=== PATIENT | female | born 1950 | race Caucasian/White ===

== ENCOUNTER 2017-08-23 05:47 | Inpatient (IN) | payer MEDICAID ==
[2017-08-23 06:06] LABS: ADD MAN DIFF? NO
[2017-08-23] MEDS: HEPARIN 1000 UNITS/ML 10 ML INJ IV (06:07)
[2017-08-23] MEDS: ASPIRIN 325 MG TAB PO (06:08)
[2017-08-23] MEDS: NITROGLYCERIN 50 MG/D5W (PMX) 250 ML IV (06:18)
[2017-08-23 06:20] LABS: WHITE BLOOD COUNT 8.2 10^3/ul (4.8-10.8)
[2017-08-23 06:20] LABS: BASOPHILS % 0.5 % (0.0-2.0); EOSINOPHILS # 0.1 10^3/ul (0.0-0.5); EOSINOPHILS % 1.1 % (0.0-7.0); HEMATOCRIT 44.3 % (37.0-47.0); HEMOGLOBIN 14.9 g/dl (12.0-16.0); LYMPHOCYTES % 24.2 % (15.0-51.0); MEAN CORPUSCULAR HEMOGLOBIN 28.3 pg (29.0-33.0); MEAN CORPUSCULAR HGB CONC 33.6 g/dl (32.0-37.0); MEAN CORPUSCULAR VOLUME 84.2 fl (82.0-101.0); MEAN PLATELET VOLUME 11.8 fl (7.4-10.4); MONOCYTE # 0.4 10^3/ul (0.3-0.9); MONOCYTES % 4.7 % (0.0-11.0); NEUTROPHIL # 5.7 10^3/ul (1.6-7.5); NEUTROPHILS % 68.9 % (39.0-77.0); PLATELET COUNT 276 10^3/UL (140-415); RED BLOOD COUNT 5.26 10^6/ul (4.20-5.40); RED CELL DISTRIBUTION WIDTH 12.9 % (11.5-14.5)
[2017-08-23 06:25] LABS: INR 0.84; PROTIME 11.6 Sec (11.9-14.9); PT RATIO 0.9
[2017-08-23 06:27] LABS: ANION GAP 18 (8-16); BLOOD UREA NITROGEN 16 mg/dl (7-20); CALCIUM 9.9 mg/dl (8.4-10.2); CARBON DIOXIDE 24 mmol/L (21-31); CHLORIDE 100 mmol/L (97-110); CREATININE 0.75 mg/dl (0.44-1.00); POTASSIUM 4.5 mmol/L (3.5-5.1); SODIUM 137 mmol/L (135-144)
[2017-08-23] MEDS ORDERED: LIDOCAINE 1% (MDV) 20 ML INJ (06:31)
[2017-08-23] MEDS ORDERED: IODIXANOL LOCM 100 ML BTL (06:31)
[2017-08-23] MEDS ORDERED: MIDAZOLAM 1 MG/ML 2 ML INJ (06:31)
[2017-08-23] MEDS ORDERED: HEPARIN 1000 UNITS/ML 10 ML INJ (06:31)
[2017-08-23] MEDS ORDERED: IOHEXOL 350MG/ML 50 ML BTL (06:31)
[2017-08-23] MEDS ORDERED: FENTAnyl 50 MCG/ML VIAL (06:31)
[2017-08-23] MEDS ORDERED: NITROGLYCERIN (IC) 100 MCG/ML INJ (06:32)
[2017-08-23] MEDS ORDERED: VERAPAMIL 5 MG INJ (06:32)
[2017-08-23 06:39] LABS: PARTIAL THROMBOPLASTIN TIME 25.5 Sec (25.0-35.0)
[2017-08-23 06:40] LABS: GLUCOSE 465 mg/dl (70-220)
[2017-08-23 06:44] LABS: TROPONIN-I 0.271 ng/ml (0.00-0.12)
[2017-08-23] MEDS ORDERED: NITROGLYCERIN 50 MG/D5W 250 ML BTL (07:00)
[2017-08-23] MEDS ORDERED: ASPIRIN 81 MG TAB (07:00)
[2017-08-23] MEDS ORDERED: SOD CHLORIDE 0.9% 1,000 ML IV (07:10)
[2017-08-23] MEDS ORDERED: ONDANSETRON 4 MG INJ IV (07:30)
[2017-08-23 07:45] LABS: CHOL/HDL RATIO 6.6 RATIO; HDL CHOLESTEROL 47 mg/dl (35-98); LDL CHOLESTEROL,CALCULATED 226 mg/dl; TRIGLYCERIDES 194 mg/dl (0-149)
[2017-08-23 07:45] LABS: CHOLESTEROL 312 mg/dl (100-200)
[2017-08-23 07:57] LABS: HEMOGLOBIN A1C 12.6 % (0-5.9)
[2017-08-23] MEDS: SOD CHLORIDE 0.9% 1,000 ML IV (08:09)
[2017-08-23] MEDS: ACCU-CHEK XX ×15 (09:00→23:04)
[2017-08-23] MEDS ORDERED: DEXTROSE 50% 50 ML SYRINGE IV ×2 (09:00)
[2017-08-23] MEDS ORDERED: ATORVASTATIN 40 MG TAB PO (09:00)
[2017-08-23] MEDS ORDERED: ACETAMINOPHEN 325 MG TAB (09:46)
[2017-08-23] MEDS: ACETAMINOPHEN 650MG/20.3ML CUP PO (09:47)
[2017-08-23] MEDS: METOPROLOL (XL) 25 MG TAB PO ×2 (10:31→20:03)
[2017-08-23] MEDS: ATORVASTATIN 80 MG TAB PO (10:31)
[2017-08-23] MEDS: ACETYLCYSTEINE 600 MG CAP PO ×2 (10:31→20:04)
[2017-08-23] MEDS: INSULIN HUMAN REGULAR 100 UNIT in SOD CHLORIDE 0.9% 99 ML IV (10:34)
[2017-08-23 14:54] LABS: CREATINE KINASE 395 IU/L (23-200)
[2017-08-23 15:05] LABS: CK INDEX 3.7
[2017-08-23] MEDS: morphine 2 MG INJ IV (15:42)
[2017-08-23] MEDS ORDERED: LABETALOL HCL 20MG INJ IV (19:30)
[2017-08-23 20:05] LABS: CREATINE KINASE 574 IU/L (23-200)
[2017-08-23] MEDS: HEPARIN 25000 UNITS/250 ML 250 ML IV (20:26)
[2017-08-23] MEDS ORDERED: ENOXAPARIN 100 MG/ML SYG SC (21:00)
[2017-08-23] MEDS: CEFAZOLIN 2 GM/50 ML (PMX) 50 ML IVPB (21:32)
[2017-08-23] MEDS: 1/2 NS + KCL 20 MEQ 1,000 ML IV (21:32)
[2017-08-23 21:38] LABS: ADD UMIC YES; UR ASCORBIC ACID NEGATIVE (NEGATIVE); UR BILIRUBIN (Dip) NEGATIVE (NEGATIVE); UR BLOOD (Dip) 2+ mg/dL (NEGATIVE); UR CLARITY CLEAR (CLEAR); UR COLOR YELLOW (YELLOW); UR GLUCOSE (Dip) 1+ mg/dL (NEGATIVE); UR KETONES (Dip) TRACE mg/dL (NEGATIVE); UR LEUKOCYTE ESTERASE (Dip) NEGATIVE Leu/ul (NEGATIVE); UR MUCUS FEW /HPF (NONE SEEN); UR NITRITE (Dip) NEGATIVE (NEGATIVE); UR RBC 25 /HPF (0-5); UR SPECIFIC GRAVITY (Dip) 1.025 (1.003-1.030); UR TOTAL PROTEIN (Dip) NEGATIVE (NEGATIVE); UR UROBILINOGEN (Dip) NEGATIVE (NEGATIVE); UR WBC 3 /HPF (0-5)
[2017-08-23] MEDS: LABETALOL HCL 20MG INJ IV (23:08)
[2017-08-24] MEDS: ACCU-CHEK XX ×18 (00:18→23:16)
[2017-08-24 01:49] LABS: PARTIAL THROMBOPLASTIN TIME 41.5 Sec (25.0-35.0)
[2017-08-24] MEDS: HEPARIN 1000 UNITS/ML 10 ML INJ IV (02:04)
[2017-08-24] MEDS: ACETAMINOPHEN 650MG/20.3ML CUP PO (03:37)
[2017-08-24] MEDS: PANTOPRAZOLE 40 MG INJ IV (05:08)
[2017-08-24 05:46] LABS: ADD MAN DIFF? NO
[2017-08-24 05:50] LABS: WHITE BLOOD COUNT 11.9 10^3/ul (4.8-10.8)
[2017-08-24 05:50] LABS: BASOPHILS % 0.2 % (0.0-2.0); EOSINOPHILS % 0.1 % (0.0-7.0); HEMATOCRIT 36.2 % (37.0-47.0); HEMOGLOBIN 12.5 g/dl (12.0-16.0); LYMPHOCYTES # 1.6 10^3/ul (0.8-2.9); LYMPHOCYTES % 13.8 % (15.0-51.0); MEAN CORPUSCULAR HEMOGLOBIN 28.5 pg (29.0-33.0); MEAN CORPUSCULAR HGB CONC 34.5 g/dl (32.0-37.0); MEAN CORPUSCULAR VOLUME 82.6 fl (82.0-101.0); MEAN PLATELET VOLUME 11.1 fl (7.4-10.4); MONOCYTE # 0.9 10^3/ul (0.3-0.9); MONOCYTES % 7.7 % (0.0-11.0); NEUTROPHIL # 9.3 10^3/ul (1.6-7.5); NEUTROPHILS % 77.8 % (39.0-77.0); PLATELET COUNT 231 10^3/UL (140-415); RED BLOOD COUNT 4.38 10^6/ul (4.20-5.40); RED CELL DISTRIBUTION WIDTH 12.9 % (11.5-14.5)
[2017-08-24 06:17] LABS: ALANINE AMINOTRANSFERASE 32 IU/L (13-69); ALBUMIN 3.5 g/dl (3.3-4.9); ALBUMIN/GLOBULIN RATIO 1.06; ALKALINE PHOSPHATASE 99 IU/L (42-121); ANION GAP 12 (8-16); ASPARTATE AMINO TRANSFERASE 129 IU/L (15-46); BILIRUBIN,INDIRECT 0.3 mg/dl (0-1.1); BILIRUBIN,TOTAL 0.3 mg/dl (0.2-1.3); BLOOD UREA NITROGEN 7 mg/dl (7-20); CALCIUM 8.6 mg/dl (8.4-10.2); CARBON DIOXIDE 20 mmol/L (21-31); CHLORIDE 106 mmol/L (97-110); CREATININE 0.57 mg/dl (0.44-1.00); GLUCOSE 122 mg/dl (70-220); POTASSIUM 3.2 mmol/L (3.5-5.1); SODIUM 135 mmol/L (135-144); TOTAL PROTEIN 6.8 g/dl (6.1-8.1)
[2017-08-24] MEDS: HEPARIN 1000 UNITS/ML 10 ML INJ (06:32)
[2017-08-24] MEDS: VANCOMYCIN 1 GM INJ (06:32)
[2017-08-24] MEDS ORDERED: SODIUM CL BACTERIOSTATIC 30 ML INJ (06:32)
[2017-08-24] MEDS: PAPAVERINE 60 MG INJ (06:32)
[2017-08-24 06:51] LABS: PARTIAL THROMBOPLASTIN TIME 123.2 Sec (25.0-35.0)
[2017-08-24] MEDS ORDERED: TRANEXAMIC ACID 1,000 MG/10 ML VIAL (07:00)
[2017-08-24] MEDS ORDERED: MIDAZOLAM 5 ML ×2 (07:26)
[2017-08-24] MEDS ORDERED: PROPOFOL 20 ML (07:26)
[2017-08-24] MEDS ORDERED: HEPARIN 1000 UNITS/ML 10 ML INJ ×2 (07:28→07:33)
[2017-08-24] MEDS ORDERED: AMINOCAPROIC ACID 5 GM INJ (07:32)
[2017-08-24] MEDS ORDERED: ALBUMIN HUMAN 25% 200 ML (07:32)
[2017-08-24] MEDS ORDERED: CA CHLORIDE 10% 10 ML SYRINGE ×2 (07:32→09:22)
[2017-08-24] MEDS ORDERED: MANNITOL 20% 250 ML IV (07:34)
[2017-08-24] MEDS ORDERED: MAGNESIUM SULFATE (MG) 50% 10 ML INJ ×2 (07:34→11:45)
[2017-08-24] MEDS ORDERED: POTASSIUM CHLORIDE 40 MEQ INJ (07:34)
[2017-08-24] MEDS ORDERED: LIDOCAINE 100 MG SYRINGE (07:34)
[2017-08-24] MEDS ORDERED: PHENYLephrine 10 MG INJ (07:35)
[2017-08-24] MEDS ORDERED: NA BICARBONATE 8.4% 50 ML SYG ×3 (07:35→10:24)
[2017-08-24] MEDS ORDERED: PHENYLephrine (100 MCG/ML) 5ML SYG (07:35)
[2017-08-24 07:43] LABS: PARTIAL THROMBOPLASTIN TIME 98.9 Sec (25.0-35.0)
[2017-08-24] MEDS ORDERED: ROCURONIUM 50 MG INJ ×3 (07:43→09:17)
[2017-08-24 08:52] LABS: MAGNESIUM 1.5 mg/dl (1.7-2.5)
[2017-08-24] MEDS: ATORVASTATIN 80 MG TAB PO (09:00)
[2017-08-24] MEDS: ASPIRIN (EC) 81 MG TAB PO (09:00)
[2017-08-24] MEDS: ACETYLCYSTEINE 600 MG CAP PO ×2 (09:00→21:00)
[2017-08-24] MEDS ORDERED: ALBUMIN HUMAN 5% 250 ML (09:17)
[2017-08-24] MEDS ORDERED: LIDOCAINE 2% (SDV) 5 ML INJ (09:21)
[2017-08-24] MEDS ORDERED: ETOMIDATE 20 MG INJ (09:21)
[2017-08-24] MEDS ORDERED: NEOSTIGMINE 3 MG/3 ML SYRINGE (09:22)
[2017-08-24] MEDS ORDERED: METOPROLOL 5 MG INJ (09:22)
[2017-08-24] MEDS ORDERED: HEPARIN 10,000 UNITS/ML 1 ML INJ (10:41)
[2017-08-24] MEDS ORDERED: PROTAMINE 250 MG INJ (11:42)
[2017-08-24] MEDS ORDERED: CEFAZOLIN 1 GM INJ (12:01)
[2017-08-24 12:58] LABS: IMMEDIATE SPIN CROSSMATCH 1 4
[2017-08-24] MEDS: POTASSIUM CHLORIDE 50 ML IVPB ×4 (13:00→17:30)
[2017-08-24] MEDS ORDERED: ALBUMIN HUMAN 5% 250 ML IV (13:30)
[2017-08-24] MEDS ORDERED: hydrALAzine 20 MG INJ IV (13:30)
[2017-08-24] MEDS ORDERED: EPHEDrine SULFATE 50 MG/5 ML SYG IV (13:30)
[2017-08-24] MEDS ORDERED: LABETALOL HCL 20MG INJ IV (13:30)
[2017-08-24] MEDS ORDERED: ATROPINE 1 MG/10 ML SYRINGE IV (13:30)
[2017-08-24] MEDS ORDERED: METOCLOPRAMIDE 10 MG INJ IV (13:30)
[2017-08-24] MEDS ORDERED: DIPHENHYDRAMINE 50 MG INJ IV (13:30)
[2017-08-24] MEDS ORDERED: IPRATROPIUM (NEB) 0.5 MG/2.5 ML AMP HHN (13:30)
[2017-08-24] MEDS ORDERED: FENTAnyl 50 MCG/ML VIAL IV ×2 (13:30)
[2017-08-24] MEDS ORDERED: HYDROmorphONE 0.5 MG/0.5 ML SYG IV (13:30)
[2017-08-24] MEDS ORDERED: ONDANSETRON 4 MG INJ IV (13:30)
[2017-08-24] MEDS ORDERED: LORAZEPAM 2 MG INJ IV (13:30)
[2017-08-24 13:49] LABS: AADO2 Arterial 470.1 mmHg (7.0-24.0); Arterial Base Excess -1.8 mmol/L (-3.0-3); Arterial Blood Gas Oxygen Sat 98.5 mmHG (95.0-98.0); Arterial COHb 0.2 % (0.0-3.0); Arterial Fraction of Oxyhgb 97.9 % (93.0-99.0); Arterial HCO3 22.1 mmol/L (22.0-26.0); Arterial MetHb 0.4 % (0.0-1.5); Arterial Total Hemglobin 9.8 g/dl (12.0-18.0); Arterial pCO2 34.1 mmhg (35-45); MODE VENT - AC; Site A-Line
[2017-08-24] MEDS: HEPARIN (10000 UNITS/ML) 10,000 UNIT, MILRINONE LACTATE 10 MG in SOD CHLORIDE 0.9% 1,00... SC (14:00)
[2017-08-24] MEDS: CLOPIDOGREL 75 MG TAB PO (14:00)
[2017-08-24] MEDS: NORepinephrine 8MG/250 ML (PMX 250 ML IV (14:00)
[2017-08-24] MEDS: INSULIN HUMAN REGULAR 100 UNIT in SOD CHLORIDE 0.9% 99 ML IVPB (14:00)
[2017-08-24] MEDS: PHENYLephrine 20MG IN 250 ML 250 ML IV (14:00)
[2017-08-24] MEDS: EPINEPHrine 4 MG in DEXTROSE 5% 246 ML IV (14:00)
[2017-08-24] MEDS: MILRINONE LACTATE 2 MG in SOD CHLORIDE 0.9% 50 ML IV (14:00)
[2017-08-24] MEDS: HYDROmorphONE 0.5 MG/0.5 ML SYG IV (15:55)
[2017-08-24] MEDS: 1/2 NS + KCL 20 MEQ 1,000 ML IV ×2 (16:00→16:30)
[2017-08-24] MEDS: ASPIRIN 600 MG SUPP PR (16:02)
[2017-08-24 17:01] LABS: ADD MAN DIFF? NO
[2017-08-24 17:05] LABS: WHITE BLOOD COUNT 8.6 10^3/ul (4.8-10.8)
[2017-08-24 17:05] LABS: BASOPHILS % 0.1 % (0.0-2.0); EOSINOPHILS % 0.1 % (0.0-7.0); HEMATOCRIT 28.3 % (37.0-47.0); HEMOGLOBIN 9.9 g/dl (12.0-16.0); LYMPHOCYTES % 11.3 % (15.0-51.0); MEAN PLATELET VOLUME 12.7 fl (7.4-10.4); MONOCYTE # 0.8 10^3/ul (0.3-0.9); MONOCYTES % 8.8 % (0.0-11.0); NEUTROPHIL # 6.8 10^3/ul (1.6-7.5); NEUTROPHILS % 79.2 % (39.0-77.0); PLATELET COUNT 106 10^3/UL (140-415); RED BLOOD COUNT 3.41 10^6/ul (4.20-5.40); RED CELL DISTRIBUTION WIDTH 13.4 % (11.5-14.5)
[2017-08-24 17:20] LABS: ALANINE AMINOTRANSFERASE 37 IU/L (13-69); ALBUMIN 3.9 g/dl (3.3-4.9); ALBUMIN/GLOBULIN RATIO 2.16; ALKALINE PHOSPHATASE 42 IU/L (42-121); ANION GAP 15 (8-16); ASPARTATE AMINO TRANSFERASE 112 IU/L (15-46); BLOOD UREA NITROGEN 7 mg/dl (7-20); CALCIUM 8.6 mg/dl (8.4-10.2); CARBON DIOXIDE 21 mmol/L (21-31); CHLORIDE 110 mmol/L (97-110); CREATININE 0.52 mg/dl (0.44-1.00); GLUCOSE 239 mg/dl (70-220); MAGNESIUM 2.1 mg/dl (1.7-2.5); POTASSIUM 3.8 mmol/L (3.5-5.1); SODIUM 142 mmol/L (135-144); TOTAL PROTEIN 5.7 g/dl (6.1-8.1)
[2017-08-24] MEDS ORDERED: POTASSIUM CHLORIDE 50 ML IVPB (19:30)
[2017-08-24 20:18] LABS: AADO2 Arterial 112.2 mmHg (7.0-24.0); Arterial Base Excess -2.8 mmol/L (-3.0-3); Arterial Blood Gas Oxygen Sat 97.1 mmHG (95.0-98.0); Arterial COHb 0.3 % (0.0-3.0); Arterial Fraction of Oxyhgb 96.4 % (93.0-99.0); Arterial HCO3 20.7 mmol/L (22.0-26.0); Arterial MetHb 0.4 % (0.0-1.5); Arterial pCO2 31.4 mmhg (35-45); Blood Gas PS 10; MODE VENT - CPAP; Site A-Line
[2017-08-24 20:22] LABS: Blood Gas PS 10; MODE VENT - CPAP; MetHgb Mixed Venous 0.5 %; Mixed Venous COHb 0.3 %; Mixed Venous Fraction OxyHgb 67.3 %; Mixed Venous Oxygen Sat 67.8 mmHG (65.0-75.0); Mixed Venous Total Hemglobin 10.9 g/dl; Sample Type BLMV; Site VENOUS LINE
[2017-08-24 20:28] LABS: ADD MAN DIFF? NO
[2017-08-24 20:31] LABS: BASOPHILS % 0.1 % (0.0-2.0); HEMATOCRIT 29.1 % (37.0-47.0); HEMOGLOBIN 9.9 g/dl (12.0-16.0); LYMPHOCYTES # 0.9 10^3/ul (0.8-2.9); LYMPHOCYTES % 9.5 % (15.0-51.0); MEAN CORPUSCULAR HEMOGLOBIN 28.4 pg (29.0-33.0); MEAN CORPUSCULAR VOLUME 83.4 fl (82.0-101.0); MEAN PLATELET VOLUME 11.9 fl (7.4-10.4); MONOCYTE # 0.8 10^3/ul (0.3-0.9); MONOCYTES % 9.2 % (0.0-11.0); NEUTROPHIL # 7.2 10^3/ul (1.6-7.5); NEUTROPHILS % 80.8 % (39.0-77.0); PLATELET COUNT 114 10^3/UL (140-415); RED BLOOD COUNT 3.49 10^6/ul (4.20-5.40); RED CELL DISTRIBUTION WIDTH 13.6 % (11.5-14.5)
[2017-08-24 20:31] LABS: WHITE BLOOD COUNT 8.9 10^3/ul (4.8-10.8)
[2017-08-24 20:32] LABS: POSITIVE DIFF @See below
[2017-08-24 20:40] LABS: ANION GAP 14 (8-16); BLOOD UREA NITROGEN 8 mg/dl (7-20); CALCIUM 8.5 mg/dl (8.4-10.2); CARBON DIOXIDE 22 mmol/L (21-31); CHLORIDE 112 mmol/L (97-110); CREATININE 0.58 mg/dl (0.44-1.00); GLUCOSE 223 mg/dl (70-220); POTASSIUM 4.1 mmol/L (3.5-5.1); SODIUM 144 mmol/L (135-144)
[2017-08-24] MEDS: INSULIN HUMAN REGULAR 100 UNIT in SOD CHLORIDE 0.9% 99 ML IV ×2 (22:05→22:57)
[2017-08-24] MEDS: morphine 2 MG INJ IV (22:27)
[2017-08-25] MEDS: ACCU-CHEK XX ×11 (00:02→12:00)
[2017-08-25] MEDS: INSULIN HUMAN REGULAR 100 UNIT in SOD CHLORIDE 0.9% 99 ML IV ×3 (00:02→06:03)
[2017-08-25] MEDS: morphine 2 MG INJ IV ×5 (00:22→08:14)
[2017-08-25] MEDS: 1/2 NS + KCL 20 MEQ 1,000 ML IV ×2 (02:31→12:30)
[2017-08-25 03:28] LABS: ADD MAN DIFF? NO
[2017-08-25 03:30] LABS: BASOPHILS % 0.3 % (0.0-2.0); HEMATOCRIT 27.7 % (37.0-47.0); HEMOGLOBIN 9.5 g/dl (12.0-16.0); LYMPHOCYTES # 0.8 10^3/ul (0.8-2.9); LYMPHOCYTES % 10.7 % (15.0-51.0); MEAN CORPUSCULAR HEMOGLOBIN 28.8 pg (29.0-33.0); MEAN CORPUSCULAR HGB CONC 34.3 g/dl (32.0-37.0); MEAN CORPUSCULAR VOLUME 83.9 fl (82.0-101.0); MEAN PLATELET VOLUME 11.3 fl (7.4-10.4); MONOCYTE # 0.9 10^3/ul (0.3-0.9); MONOCYTES % 11.6 % (0.0-11.0); NEUTROPHILS % 77.1 % (39.0-77.0); PLATELET COUNT 106 10^3/UL (140-415); RED CELL DISTRIBUTION WIDTH 14.2 % (11.5-14.5)
[2017-08-25 03:30] LABS: WHITE BLOOD COUNT 7.7 10^3/ul (4.8-10.8)
[2017-08-25 03:34] LABS: POSITIVE DIFF @See below
[2017-08-25 03:52] LABS: PARTIAL THROMBOPLASTIN TIME 43.2 Sec (25.0-35.0)
[2017-08-25 03:56] LABS: MAGNESIUM 1.8 mg/dl (1.7-2.5)
[2017-08-25 03:57] LABS: ANION GAP 13 (8-16); BLOOD UREA NITROGEN 9 mg/dl (7-20); CALCIUM 7.8 mg/dl (8.4-10.2); CARBON DIOXIDE 22 mmol/L (21-31); CHLORIDE 114 mmol/L (97-110); CREATININE 0.58 mg/dl (0.44-1.00); GLUCOSE 107 mg/dl (70-220); SODIUM 145 mmol/L (135-144)
[2017-08-25] MEDS: MAGNESIUM SULFATE 2 GM/50 ML 50 ML IVPB (04:32)
[2017-08-25] MEDS: PANTOPRAZOLE 40 MG INJ IV (05:56)
[2017-08-25] MEDS: ACETYLCYSTEINE 600 MG CAP PO ×2 (08:12→20:47)
[2017-08-25] MEDS: CLOPIDOGREL 75 MG TAB PO (08:12)
[2017-08-25] MEDS: ASPIRIN (EC) 81 MG TAB PO (08:12)
[2017-08-25] MEDS: METOPROLOL (XL) 25 MG TAB PO (08:13)
[2017-08-25 08:41] LABS: MODE VENT - AC; MetHgb Mixed Venous 0.5 %; Mixed Venous Base Excess -1.3 mmol/L; Mixed Venous COHb 0.3 %; Mixed Venous Fraction OxyHgb 82.9 %; Mixed Venous Oxygen Sat 83.6 mmHG (65.0-75.0); Mixed Venous Total Hemglobin 10.1 g/dl; Sample Type BLMV; Site PUL ART LINE
[2017-08-25] MEDS: ATORVASTATIN 80 MG TAB PO (09:00)
[2017-08-25] MEDS ORDERED: GLUCAGON 1 MG INJ IM (11:30)
[2017-08-25] MEDS ORDERED: GLUCOSE GEL 15 GRAM TUBE BUCCAL (11:30)
[2017-08-25] MEDS ORDERED: GLUCOSE GEL 15 GRAM TUBE PO ×2 (11:30)
[2017-08-25] MEDS ORDERED: DEXTROSE 50% 50 ML SYRINGE IV ×2 (11:30)
[2017-08-25] MEDS ORDERED: INSULIN ASPART [NOVOLOG] 3 ML PEN SC ×2 (13:00→13:53)
[2017-08-25] MEDS: HYDROCODONE/APAP (5/325) TAB PO ×2 (13:49→20:37)
[2017-08-25] MEDS: Insulin NOVOLOG SS MODERATE Algorithm (SS with meals and bedtime) SC ×3 (14:30→20:44)
[2017-08-25] MEDS ORDERED: morphine LIQ (10 MG/5 ML) CUP PO ×3 (16:30)
[2017-08-26] MEDS: ACCUCHECK AT 2AM (Patients on SS coverage) XX (02:00)
[2017-08-26] MEDS ORDERED: ACCU-CHEK XX (02:00)
[2017-08-26 04:44] LABS: ADD MAN DIFF? NO
[2017-08-26 04:45] LABS: WHITE BLOOD COUNT 9.1 10^3/ul (4.8-10.8)
[2017-08-26 04:45] LABS: BASOPHILS % 0.2 % (0.0-2.0); EOSINOPHILS % 0.4 % (0.0-7.0); HEMATOCRIT 27.4 % (37.0-47.0); HEMOGLOBIN 9.3 g/dl (12.0-16.0); LYMPHOCYTES # 1.5 10^3/ul (0.8-2.9); MEAN CORPUSCULAR HGB CONC 33.9 g/dl (32.0-37.0); MEAN CORPUSCULAR VOLUME 85.4 fl (82.0-101.0); MEAN PLATELET VOLUME 12.2 fl (7.4-10.4); MONOCYTE # 0.8 10^3/ul (0.3-0.9); MONOCYTES % 8.2 % (0.0-11.0); NEUTROPHIL # 6.8 10^3/ul (1.6-7.5); NEUTROPHILS % 74.8 % (39.0-77.0); PLATELET COUNT 113 10^3/UL (140-415); RED BLOOD COUNT 3.21 10^6/ul (4.20-5.40); RED CELL DISTRIBUTION WIDTH 14.6 % (11.5-14.5)
[2017-08-26 05:07] LABS: ANION GAP 10 (8-16); BLOOD UREA NITROGEN 16 mg/dl (7-20); CALCIUM 7.9 mg/dl (8.4-10.2); CARBON DIOXIDE 22 mmol/L (21-31); CHLORIDE 109 mmol/L (97-110); CREATININE 0.63 mg/dl (0.44-1.00); GLUCOSE 178 mg/dl (70-220); POTASSIUM 3.9 mmol/L (3.5-5.1); SODIUM 137 mmol/L (135-144)
[2017-08-26 05:09] LABS: MAGNESIUM 2.1 mg/dl (1.7-2.5)
[2017-08-26] MEDS: PANTOPRAZOLE 40 MG INJ IV (05:33)
[2017-08-26] MEDS: HYDROCODONE/APAP (5/325) TAB PO ×2 (06:41→18:32)
[2017-08-26] MEDS: ASPIRIN (EC) 81 MG TAB PO (08:04)
[2017-08-26] MEDS: CLOPIDOGREL 75 MG TAB PO (08:04)
[2017-08-26] MEDS: Insulin NOVOLOG SS MODERATE Algorithm (SS with meals and bedtime) SC ×4 (08:04→21:07)
[2017-08-26] MEDS: ATORVASTATIN 80 MG TAB PO (08:04)
[2017-08-26] MEDS: METOPROLOL (XL) 25 MG TAB PO (08:08)
[2017-08-26] MEDS: ENOXAPARIN 40 MG/0.4 ML SYG SC (08:08)
[2017-08-26] MEDS: ONDANSETRON 4 MG INJ IV (09:07)
[2017-08-26] MEDS: INSULIN GLARGINE [LANtus] 3 ML PEN SC (13:54)
[2017-08-26] MEDS: VALSARTAN 80 MG TAB PO ×2 (15:18→21:00)
[2017-08-26] MEDS ORDERED: INSULIN GLARGINE [LANtus] 3 ML PEN SC (20:00)
[2017-08-27] MEDS: ACCUCHECK AT 2AM (Patients on SS coverage) XX (02:00)
[2017-08-27] MEDS: HYDROCODONE/APAP (5/325) TAB PO ×3 (03:47→20:25)
[2017-08-27 06:19] LABS: ADD MAN DIFF? NO
[2017-08-27 06:23] LABS: BASOPHILS % 0.2 % (0.0-2.0); EOSINOPHILS # 0.2 10^3/ul (0.0-0.5); EOSINOPHILS % 2.1 % (0.0-7.0); HEMATOCRIT 28.9 % (37.0-47.0); HEMOGLOBIN 9.6 g/dl (12.0-16.0); LYMPHOCYTES # 1.5 10^3/ul (0.8-2.9); LYMPHOCYTES % 16.3 % (15.0-51.0); MEAN CORPUSCULAR HEMOGLOBIN 28.7 pg (29.0-33.0); MEAN CORPUSCULAR HGB CONC 33.2 g/dl (32.0-37.0); MEAN CORPUSCULAR VOLUME 86.3 fl (82.0-101.0); MEAN PLATELET VOLUME 11.3 fl (7.4-10.4); MONOCYTE # 0.7 10^3/ul (0.3-0.9); MONOCYTES % 7.5 % (0.0-11.0); NEUTROPHIL # 6.6 10^3/ul (1.6-7.5); NEUTROPHILS % 73.6 % (39.0-77.0); PLATELET COUNT 156 10^3/UL (140-415); RED BLOOD COUNT 3.35 10^6/ul (4.20-5.40); RED CELL DISTRIBUTION WIDTH 14.5 % (11.5-14.5)
[2017-08-27 06:47] LABS: ANION GAP 12 (8-16); BLOOD UREA NITROGEN 18 mg/dl (7-20); CARBON DIOXIDE 23 mmol/L (21-31); CHLORIDE 107 mmol/L (97-110); GLUCOSE 208 mg/dl (70-220); POTASSIUM 4.4 mmol/L (3.5-5.1); SODIUM 138 mmol/L (135-144)
[2017-08-27] MEDS: Insulin NOVOLOG SS MODERATE Algorithm (SS with meals and bedtime) SC ×4 (08:00→20:34)
[2017-08-27] MEDS: ENOXAPARIN 40 MG/0.4 ML SYG SC (08:01)
[2017-08-27] MEDS: ASPIRIN (EC) 81 MG TAB PO (08:02)
[2017-08-27] MEDS: ATORVASTATIN 80 MG TAB PO (08:02)
[2017-08-27] MEDS: CLOPIDOGREL 75 MG TAB PO (08:02)
[2017-08-27] MEDS: METOPROLOL (XL) 25 MG TAB PO (08:03)
[2017-08-27] MEDS: VALSARTAN 80 MG TAB PO ×2 (09:00→20:23)
[2017-08-27] MEDS: ONDANSETRON 4 MG INJ IV (14:50)
[2017-08-27] MEDS: INSULIN GLARGINE [LANtus] 3 ML PEN SC (20:35)
[2017-08-28] MEDS: ACCUCHECK AT 2AM (Patients on SS coverage) XX (02:00)
[2017-08-28] MEDS: HYDROCODONE/APAP (5/325) TAB PO ×2 (05:48→19:36)
[2017-08-28] MEDS: METOPROLOL (XL) 100 MG TAB PO (08:31)
[2017-08-28] MEDS: ASPIRIN (EC) 81 MG TAB PO (08:31)
[2017-08-28] MEDS: CLOPIDOGREL 75 MG TAB PO (08:32)
[2017-08-28] MEDS: ATORVASTATIN 80 MG TAB PO (08:32)
[2017-08-28] MEDS: VALSARTAN 80 MG TAB PO ×2 (08:32→21:22)
[2017-08-28] MEDS: ENOXAPARIN 40 MG/0.4 ML SYG SC (08:41)
[2017-08-28] MEDS: Insulin NOVOLOG SS MODERATE Algorithm (SS with meals and bedtime) SC ×5 (08:41→21:00)
[2017-08-28 11:19] LABS: ADD MAN DIFF? NO
[2017-08-28 11:21] LABS: WHITE BLOOD COUNT 7.6 10^3/ul (4.8-10.8)
[2017-08-28 11:21] LABS: BASOPHILS % 0.3 % (0.0-2.0); EOSINOPHILS # 0.2 10^3/ul (0.0-0.5); EOSINOPHILS % 2.8 % (0.0-7.0); HEMATOCRIT 30.1 % (37.0-47.0); LYMPHOCYTES # 1.3 10^3/ul (0.8-2.9); LYMPHOCYTES % 16.6 % (15.0-51.0); MEAN CORPUSCULAR HEMOGLOBIN 28.5 pg (29.0-33.0); MEAN CORPUSCULAR HGB CONC 33.2 g/dl (32.0-37.0); MEAN CORPUSCULAR VOLUME 85.8 fl (82.0-101.0); MEAN PLATELET VOLUME 10.1 fl (7.4-10.4); MONOCYTE # 0.7 10^3/ul (0.3-0.9); MONOCYTES % 8.5 % (0.0-11.0); NEUTROPHIL # 5.4 10^3/ul (1.6-7.5); NEUTROPHILS % 71.4 % (39.0-77.0); PLATELET COUNT 256 10^3/UL (140-415); RED BLOOD COUNT 3.51 10^6/ul (4.20-5.40); RED CELL DISTRIBUTION WIDTH 13.8 % (11.5-14.5)
[2017-08-28 11:53] LABS: ANION GAP 13 (8-16); BLOOD UREA NITROGEN 14 mg/dl (7-20); CALCIUM 8.2 mg/dl (8.4-10.2); CARBON DIOXIDE 25 mmol/L (21-31); CHLORIDE 102 mmol/L (97-110); CREATININE 0.66 mg/dl (0.44-1.00); GLUCOSE 260 mg/dl (70-220); POTASSIUM 3.9 mmol/L (3.5-5.1); SODIUM 136 mmol/L (135-144)
[2017-08-28] MEDS: INSULIN GLARGINE [LANtus] 3 ML PEN SC (21:29)
[2017-08-29] MEDS: ACCUCHECK AT 2AM (Patients on SS coverage) XX (01:26)
[2017-08-29] MEDS: MAGNESIUM HYDROXIDE 30ML CUP PO (05:59)
[2017-08-29] MEDS: SENNA TAB PO ×2 (06:00→20:58)
[2017-08-29 06:08] LABS: ADD MAN DIFF? NO
[2017-08-29 06:19] LABS: WHITE BLOOD COUNT 7.2 10^3/ul (4.8-10.8)
[2017-08-29 06:19] LABS: BASOPHILS % 0.3 % (0.0-2.0); EOSINOPHILS # 0.2 10^3/ul (0.0-0.5); EOSINOPHILS % 3.2 % (0.0-7.0); HEMATOCRIT 28.9 % (37.0-47.0); HEMOGLOBIN 9.9 g/dl (12.0-16.0); LYMPHOCYTES # 1.9 10^3/ul (0.8-2.9); LYMPHOCYTES % 26.3 % (15.0-51.0); MEAN CORPUSCULAR HEMOGLOBIN 28.9 pg (29.0-33.0); MEAN CORPUSCULAR HGB CONC 34.3 g/dl (32.0-37.0); MEAN CORPUSCULAR VOLUME 84.3 fl (82.0-101.0); MEAN PLATELET VOLUME 10.3 fl (7.4-10.4); MONOCYTE # 0.7 10^3/ul (0.3-0.9); NEUTROPHIL # 4.3 10^3/ul (1.6-7.5); NEUTROPHILS % 59.8 % (39.0-77.0); PLATELET COUNT 238 10^3/UL (140-415); RED BLOOD COUNT 3.43 10^6/ul (4.20-5.40); RED CELL DISTRIBUTION WIDTH 13.6 % (11.5-14.5)
[2017-08-29 06:46] LABS: ANION GAP 12 (8-16); BLOOD UREA NITROGEN 12 mg/dl (7-20); CALCIUM 8.3 mg/dl (8.4-10.2); CARBON DIOXIDE 23 mmol/L (21-31); CHLORIDE 108 mmol/L (97-110); CREATININE 0.52 mg/dl (0.44-1.00); GLUCOSE 127 mg/dl (70-220); PHOSPHORUS 2.7 mg/dl (2.5-4.9); POTASSIUM 3.7 mmol/L (3.5-5.1); SODIUM 139 mmol/L (135-144)
[2017-08-29] MEDS: Insulin NOVOLOG SS MODERATE Algorithm (SS with meals and bedtime) SC ×4 (07:55→20:57)
[2017-08-29] MEDS: VALSARTAN 80 MG TAB PO ×2 (08:40→20:58)
[2017-08-29] MEDS: CLOPIDOGREL 75 MG TAB PO (08:40)
[2017-08-29] MEDS: ASPIRIN (EC) 81 MG TAB PO (08:40)
[2017-08-29] MEDS: ATORVASTATIN 80 MG TAB PO (08:40)
[2017-08-29] MEDS: METOPROLOL (XL) 100 MG TAB PO ×2 (08:41→14:40)
[2017-08-29] MEDS: ENOXAPARIN 40 MG/0.4 ML SYG SC (08:44)
[2017-08-29] MEDS: HYDROCODONE/APAP (5/325) TAB PO (11:23)
[2017-08-29] MEDS: INSULIN GLARGINE [LANtus] 3 ML PEN SC (21:03)
[2017-08-30] MEDS: ACCUCHECK AT 2AM (Patients on SS coverage) XX (01:25)
[2017-08-30] MEDS: HYDROCODONE/APAP (5/325) TAB PO ×2 (03:45→16:35)
[2017-08-30 06:24] LABS: ADD MAN DIFF? NO; BASOPHILS % 0.4 % (0.0-2.0); EOSINOPHILS # 0.1 10^3/ul (0.0-0.5); EOSINOPHILS % 1.5 % (0.0-7.0); HEMATOCRIT 29.4 % (37.0-47.0); HEMOGLOBIN 9.9 g/dl (12.0-16.0); LYMPHOCYTES # 2.1 10^3/ul (0.8-2.9); MEAN CORPUSCULAR HEMOGLOBIN 28.8 pg (29.0-33.0); MEAN CORPUSCULAR HGB CONC 33.7 g/dl (32.0-37.0); MEAN CORPUSCULAR VOLUME 85.5 fl (82.0-101.0); MEAN PLATELET VOLUME 9.6 fl (7.4-10.4); MONOCYTE # 0.8 10^3/ul (0.3-0.9); MONOCYTES % 9.7 % (0.0-11.0); NEUTROPHIL # 5.4 10^3/ul (1.6-7.5); NEUTROPHILS % 62.6 % (39.0-77.0); NUCLEATED RED BLOOD CELLS # 0.1 10^3/ul (0.0-0.0); NUCLEATED RED BLOOD CELLS% 0.6 /100WBC (0.0-0.0); PLATELET COUNT 313 10^3/UL (140-415); RED BLOOD COUNT 3.44 10^6/ul (4.20-5.40); RED CELL DISTRIBUTION WIDTH 13.4 % (11.5-14.5)
[2017-08-30 06:24] LABS: WHITE BLOOD COUNT 8.6 10^3/ul (4.8-10.8)
[2017-08-30 07:31] LABS: ANION GAP 11 (8-16); BLOOD UREA NITROGEN 10 mg/dl (7-20); CALCIUM 8.5 mg/dl (8.4-10.2); CARBON DIOXIDE 27 mmol/L (21-31); CHLORIDE 105 mmol/L (97-110); CREATININE 0.63 mg/dl (0.44-1.00); GLUCOSE 117 mg/dl (70-220); POTASSIUM 3.6 mmol/L (3.5-5.1); SODIUM 139 mmol/L (135-144)
[2017-08-30] MEDS: Insulin NOVOLOG SS MODERATE Algorithm (SS with meals and bedtime) SC ×4 (07:55→20:36)
[2017-08-30] MEDS: CLOPIDOGREL 75 MG TAB PO (08:40)
[2017-08-30] MEDS: SENNA TAB PO ×2 (08:40→20:25)
[2017-08-30] MEDS: ASPIRIN (EC) 81 MG TAB PO (08:41)
[2017-08-30] MEDS: ATORVASTATIN 80 MG TAB PO (08:41)
[2017-08-30] MEDS: VALSARTAN 80 MG TAB PO ×2 (08:41→20:25)
[2017-08-30] MEDS: METOPROLOL (XL) 100 MG TAB PO (08:42)
[2017-08-30] MEDS: ENOXAPARIN 40 MG/0.4 ML SYG SC (08:44)
[2017-08-30] MEDS: DOCUSATE SODIUM 100 MG CAP PO ×2 (09:48→20:25)
[2017-08-30] MEDS: INSULIN GLARGINE [LANtus] 3 ML PEN SC (20:35)
[2017-08-31] MEDS: ACCUCHECK AT 2AM (Patients on SS coverage) XX (02:00)
[2017-08-31] MEDS: HYDROCODONE/APAP (5/325) TAB PO ×2 (03:39→14:35)
[2017-08-31 06:42] LABS: ADD MAN DIFF? NO
[2017-08-31 06:51] LABS: BASOPHILS % 0.1 % (0.0-2.0); EOSINOPHILS # 0.3 10^3/ul (0.0-0.5); EOSINOPHILS % 3.4 % (0.0-7.0); HEMATOCRIT 27.4 % (37.0-47.0); HEMOGLOBIN 9.2 g/dl (12.0-16.0); LYMPHOCYTES # 2.1 10^3/ul (0.8-2.9); LYMPHOCYTES % 27.5 % (15.0-51.0); MEAN CORPUSCULAR HEMOGLOBIN 28.5 pg (29.0-33.0); MEAN CORPUSCULAR HGB CONC 33.6 g/dl (32.0-37.0); MEAN CORPUSCULAR VOLUME 84.8 fl (82.0-101.0); MEAN PLATELET VOLUME 9.5 fl (7.4-10.4); MONOCYTE # 0.8 10^3/ul (0.3-0.9); MONOCYTES % 10.5 % (0.0-11.0); NEUTROPHIL # 4.4 10^3/ul (1.6-7.5); NEUTROPHILS % 57.3 % (39.0-77.0); NUCLEATED RED BLOOD CELLS% 0.4 /100WBC (0.0-0.0); PLATELET COUNT 341 10^3/UL (140-415); RED BLOOD COUNT 3.23 10^6/ul (4.20-5.40); RED CELL DISTRIBUTION WIDTH 13.7 % (11.5-14.5)
[2017-08-31 06:51] LABS: WHITE BLOOD COUNT 7.7 10^3/ul (4.8-10.8)
[2017-08-31 07:17] LABS: ANION GAP 14 (8-16); BLOOD UREA NITROGEN 12 mg/dl (7-20); CALCIUM 8.2 mg/dl (8.4-10.2); CARBON DIOXIDE 25 mmol/L (21-31); CHLORIDE 106 mmol/L (97-110); CREATININE 0.67 mg/dl (0.44-1.00); GLUCOSE 130 mg/dl (70-220); POTASSIUM 3.7 mmol/L (3.5-5.1); SODIUM 141 mmol/L (135-144)
[2017-08-31] MEDS: Insulin NOVOLOG SS MODERATE Algorithm (SS with meals and bedtime) SC ×2 (07:35→12:15)
[2017-08-31] MEDS: ATORVASTATIN 80 MG TAB PO (08:47)
[2017-08-31] MEDS: DOCUSATE SODIUM 100 MG CAP PO (08:47)
[2017-08-31] MEDS: ASPIRIN (EC) 81 MG TAB PO (08:47)
[2017-08-31] MEDS: CLOPIDOGREL 75 MG TAB PO (08:47)
[2017-08-31] MEDS: VALSARTAN 80 MG TAB PO (08:48)
[2017-08-31] MEDS: METOPROLOL (XL) 100 MG TAB PO (08:48)
[2017-08-31] MEDS: SENNA TAB PO (08:50)
[2017-08-31] MEDS: ENOXAPARIN 40 MG/0.4 ML SYG SC (08:50)
== END 2017-08-31 17:20 | disposition home or self-care (01) | DRG 234 ==
LOC: TEL 08-28 17:18 → E/R 05:47 → REC 06:48 → ICU 11:55
PROC: 4A023N7 Measurement of Cardiac Sampling and Pressure, Left Heart, Percutaneous Approach (ICD-10-PCS; 2017-08-23 06:00)
PROC: B211YZZ Fluoroscopy of Multiple Coronary Arteries using Other Contrast (ICD-10-PCS; 2017-08-23 06:00)
PROC: B215YZZ Fluoroscopy of Left Heart using Other Contrast (ICD-10-PCS; 2017-08-23 06:00)
PROC: 021109W Bypass Coronary Artery, Two Arteries from Aorta with Autologous Venous Tissue, Open Approach (ICD-10-PCS; principal; 2017-08-23 06:54)
PROC: 02100Z9 Bypass Coronary Artery, One Artery from Left Internal Mammary, Open Approach (ICD-10-PCS; 2017-08-23 06:54)
PROC: 06BN4ZZ Excision of Left Femoral Vein, Percutaneous Endoscopic Approach (ICD-10-PCS; 2017-08-23 06:54)
PROC: 5A1221Z Performance of Cardiac Output, Continuous (ICD-10-PCS; 2017-08-23 06:54)
PROC: 02HP32Z Insertion of Monitoring Device into Pulmonary Trunk, Percutaneous Approach (ICD-10-PCS; 2017-08-23 06:54)
DX: I21.02 ST elevation (STEMI) myocardial infarction involving left anterior descending coronary artery (principal); E11.65 Type 2 diabetes mellitus with hyperglycemia; I10 Essential (primary) hypertension; E87.6 Hypokalemia; G43.909 Migraine, unspecified, not intractable, without status migrainosus; E78.5 Hyperlipidemia, unspecified; I25.5 Ischemic cardiomyopathy; I25.10 Atherosclerotic heart disease of native coronary artery without angina pectoris
CPT/HCPCS: 36415; 36430; 36592; 36600; 71045; 80048; 80053; 80061; 81001; 82550; 82553; 82803; 82962; 83036; 83735; 84100; 84443; 84484; 85014; 85018; 85025; 85610; 85730; 86850; 86900; 86901; 86920; 87081; 93005; 93306; 93312; 93458; 94002; 96374; 96375; 97116; 97163; 97530; 99291-25

== ENCOUNTER 2017-09-02 17:15 | Emergency (ER) | payer MEDICAID | END 2017-09-02 21:48 | disposition home or self-care (01) | LOC: E/R 17:15 | DX: Z48.01 Encounter for change or removal of surgical wound dressing (principal); I10 Essential (primary) hypertension; Z79.4 Long term (current) use of insulin; Z79.82 Long term (current) use of aspirin | CPT/HCPCS: 99281; Z7502 ==